=== PATIENT | female | born 1985 | race Caucasian/White ===

== ENCOUNTER 2025-06-22 09:44 | Outpatient (CLI) | payer BC, SELFPAY | END 2025-06-22 09:45 | disposition home or self-care (01) | LOC: NFLDREF 06-28 12:09 | PROVIDERS: PCP Nurse Practitioner Family; Referring Provider Nurse Practitioner Adult Health; Visit Provider Nurse Practitioner Family | DX: Z00.00 Encounter for general adult medical examination without abnormal findings (principal); R03.0 Elevated blood-pressure reading, without diagnosis of hypertension; E66.3 Overweight; Z68.32 Body mass index [BMI] 32.0-32.9, adult | CPT/HCPCS: 80053; 80061 ==